=== PATIENT | female | born 1980 | race Caucasian/White ===

== ENCOUNTER 2017-03-18 12:48 | Emergency (ER) | payer OTHER ==
[~2017-03-18] VITALS: Ht 170.2 cm; Wt 61.2 kg
[2017-03-18] MEDS ORDERED: BACTRIM DS TAB1 EACH PO (16:39)
[2017-03-18] MEDS ORDERED: ZOFRAN ODT4 MG PO (16:39)
== END 2017-03-18 16:55 | disposition home or self-care (01) ==
LOC: ED 12:48
DX: N39.0 Urinary tract infection, site not specified (principal); R10.9 Unspecified abdominal pain
CPT/HCPCS: 74177; 80053; 81001; 82150; 83690; 84703; 85025; 96361; 96374; 96375; 99284; J1170; J2405; J7030; Q9967

== ENCOUNTER 2020-10-05 03:23 | Emergency (ER) | payer OTHER ==
[~2020-10-05] VITALS: Ht 170.2 cm; Wt 68.0 kg
[~2020-10-05 03:23] MED LIST: BACTRIM DS TAB1 EACH PO; IBUPROFEN800 MG PO; ZOFRAN ODT4 MG PO
[2020-10-05] MEDS ORDERED: GUAIFENESIN AC473 ML PO (04:44)
== END 2020-10-05 04:58 | disposition home or self-care (01) ==
LOC: ED 03:23
DX: B34.9 Viral infection, unspecified (principal); Z20.822 Contact with and (suspected) exposure to COVID-19; F17.200 Nicotine dependence, unspecified, uncomplicated
CPT/HCPCS: 99283; C9803; U0003

== ENCOUNTER 2021-11-02 16:01 | Emergency (ER) | payer OTHER ==
[~2021-11-02 16:01] MED LIST changes: +GUAIFENESIN AC473 ML PO
[2021-11-02] MEDS ORDERED: CEPHALEXIN500 M1 PO (19:43)
[2021-11-02] MEDS ORDERED: HYDROCODON-ACE1 EA10 PO (19:43)
--- NOTE | 2021-11-05 15:38 | EKG ---
[facility] [address] [facility] [place] [address] Signed Normal sinus rhythm Prolonged QT Abnormal ECG When compared with ECG of 12-APR-2018 13:50, Minimal criteria for Anterior infarct are no longer present Confirmed by SAJI CABEZAS MD ([id number]) on 11/05/2021 3:37:54 PM Electronically Signed By: SAJI CABEZAS MD 11/05/21 1538 PATIENT NAME: YRNLORENZALIYA MITCHELL Electrocardiogram DATE OF : 82 PHYSICIAN: SAJI CABEZAS MD REPORT #: [id number] REPORT IS CONFIDENTIAL AND NOT TO BE RELEASED WITHOUT AUTHORIZATION
== END 2021-11-02 20:15 | disposition home or self-care (01) ==
LOC: ED 16:01
DX: S41.011A Laceration without foreign body of right shoulder, initial encounter (principal); F17.200 Nicotine dependence, unspecified, uncomplicated; X58.XXXA Exposure to other specified factors, initial encounter; Z23 Encounter for immunization
CPT/HCPCS: 12034; 36415; 73030; 80053; 84703; 85025; 90471; 90715; 93005; 93010; 99285-25; A9270; G0480; J0690; J1170; J1885

== ENCOUNTER 2022-09-20 02:58 | Emergency (ER) | payer OTHER ==
[~2022-09-20] VITALS: Ht 170.2 cm; Wt 73.1 kg
[~2022-09-20 02:58] MED LIST changes: +CEPHALEXIN500 M1 PO; +HYDROCODON-ACE1 EA10 PO
[2022-09-20] MEDS ORDERED: MAXITROL EYE DRO5 ML OPTH (04:06)
== END 2022-09-20 04:38 | disposition home or self-care (01) ==
LOC: ED 02:58
DX: T54.3X1A Toxic effect of corrosive alkalis and alkali-like substances, accidental (unintentional), initial encounter (principal); H10.211 Acute toxic conjunctivitis, right eye; F17.200 Nicotine dependence, unspecified, uncomplicated
CPT/HCPCS: 99283

== ENCOUNTER 2025-03-21 10:41 | Emergency (ER) | payer OTHER ==
[~2025-03-21] VITALS: Ht 170.2 cm; Wt 71.0 kg
[~2025-03-21 10:41] MED LIST changes: +MAXITROL EYE DRO5 ML OPTH
[2025-03-21] MEDS ORDERED: CEPHALEXIN500 MG PO (12:35)
[2025-03-21] MEDS ORDERED: ANTI-ITCH28 G1 TOP (12:35)
[2025-03-21 12:47] VITALS: BP 151/89
== END 2025-03-21 12:48 | disposition home or self-care (01) ==
LOC: ED 10:41
DX: L25.3 Unspecified contact dermatitis due to other chemical products (principal); F17.200 Nicotine dependence, unspecified, uncomplicated
CPT/HCPCS: 99282